=== PATIENT | male | born 1930 | race Caucasian/White ===

== ENCOUNTER → 2016-08-28 | Outpatient (CLI) | payer MEDICARE, MEDICAID ==
[~2016-08-28] MED LIST: ALTOPREV20 MG PO; AMBIEN10 MG PO; ARICEPT10 MG PO; BENADRYL25 M2 PO; CITALOPRAM20 MG PO; CLONAZEPAM0.5 MG PO; EPA FISH OIL1000 MG PO; FISH OIL1 IU PO; FLEXERIL10 MG PO; FLOMAX 0.40.4 MG/CAP; HYDROCHLOROTHIA50 MG PO; IMODIUM A-D2 M1 PO; IMODIUM A-D2 MG PO; K-BICARB99 MG PO; LOMOTIL TAB 01 UDTAB PO; LOPRESSOR100 MG PO; LUPRON DEPOT3.75 MG IM; MEDI-FIRST ASP325 MG PO; MULTIVITAMIN1 CTB PO; MYLANTA PO; NAMENDA5 MG PO; NAPROXEN500 MG PO; NORCO 325 MG-51 TA1 PO; OMEPRAZOLE20 MG PO; PAXIL20 MG PO; PEPCID 20MG TAB20 MG PO; PRILOSEC 20MG20 MG PO; RISPERDAL 0.20.25 MG PO; ROBITUSSIN DM 105 ML PO; ROCEPHIN VIA1 G/VIAL IV; ST. JOSEPH81 M2 PO; TRAZODO50 MG PO; TUMS500 MG PO; TYLENOL #21 TAB PO; TYLENOL 325MG325 MG PO; TYLENOL 650MG650 M2 PO; ULTRAM 50MG TAB50 MG PO; ULTRAM50 MG PO; VITAMIN C500 MG PO; ZOFRAN ODT4 MG PO
== END ==
LOC: LAB 16:10
DX: N39.0 Urinary tract infection, site not specified (principal); R82.71 Bacteriuria

== ENCOUNTER → 2016-11-14 | Outpatient (CLI) | payer MEDICARE, MEDICAID ==
[~2016-11-14] VITALS: Ht 182.9 cm; Wt 77.2 kg
[2016-11-14 10:14] VITALS: BP 123/65
== END ==
LOC: AMSURD 09:58
DX: I10 Essential (primary) hypertension (principal); I65.23 Occlusion and stenosis of bilateral carotid arteries; R73.02 Impaired glucose tolerance (oral); G30.1 Alzheimer's disease with late onset; M19.90 Unspecified osteoarthritis, unspecified site; C61 Malignant neoplasm of prostate

== ENCOUNTER → 2017-03-13 | Outpatient (CLI) | payer MEDICARE, MEDICAID ==
[2016-11-14 10:14] VITALS: BP 123/65
== END ==
LOC: LAB 14:32
DX: R53.83 Other fatigue (principal); L30.9 Dermatitis, unspecified; L29.3 Anogenital pruritus, unspecified

== ENCOUNTER → 2017-04-01 | Outpatient (CLI) | payer MEDICARE, MEDICAID ==
[2016-11-14 10:14] VITALS: BP 123/65
== END ==
LOC: LAB 14:37
DX: N39.0 Urinary tract infection, site not specified (principal); R82.71 Bacteriuria; R45.1 Restlessness and agitation; R45.4 Irritability and anger; R63.0 Anorexia

== ENCOUNTER → 2017-04-09 | Outpatient (CLI) | payer MEDICARE, MEDICAID ==
[2016-11-14 10:14] VITALS: BP 123/65
[2017-04-09 13:01] LABS: EOS # 0.2 (0.04-0.40); EOS % 4.6 % (0.0-4.0); HEMATOCRIT 36.4 % (42.0-52.0); HEMOGLOBIN 11.8 g/dL (13.5-18.0); MEAN CELL VOLUME 87 fl (78-100); MEAN CORPUSCULAR HEMOGLOBIN 28 pg (27-31); MEAN CORPUSCULAR HGB CONC 32 g/dL (33-37); MEAN PLATELET VOLUME 8.6 fl (7.4-10.4); MONO # 0.4 (0.20-0.80); NEU # 3.6 (1.40-6.50); PLATELET COUNT 323 K/mm3 (130-400); RED BLOOD COUNT 4.17 M/mm3 (4.20-5.60); RED CELL DISTRIBUTION WIDTH 14.8 % (11.5-14.5); WHITE BLOOD COUNT 5.2 K/mm3 (4.8-10.8)
[2017-04-09 13:08] LABS: ALBUMIN 3.6 g/dL (3.5-5.0); BUN/CREATININE RATIO 14.6 (6.0-26.0); CALCIUM 10.4 mg/dL (8.4-10.2); POTASSIUM 4.5 mmol/L (3.6-5.0); TOTAL BILIRUBIN 0.4 mg/dL (0.2-1.3); TOTAL PROTEIN 7.9 g/dL (6.3-8.2)
== END ==
LOC: RAD 11:59
PROVIDERS: Nurse Practitioner Family
DX: L02.612 Cutaneous abscess of left foot (principal); E11.9 Type 2 diabetes mellitus without complications

== ENCOUNTER → 2017-04-18 | Outpatient (CLI) | payer MEDICARE, MEDICAID ==
[2016-11-14 10:14] VITALS: BP 123/65
[2017-04-18 11:26] LABS: EOS # 0.3 (0.04-0.40); EOS % 3.6 % (0.0-4.0); HEMATOCRIT 32.8 % (42.0-52.0); HEMOGLOBIN 10.3 g/dL (13.5-18.0); LYMPH# 1.9 (1.50-4.00); MEAN CELL VOLUME 89 fl (78-100); MEAN CORPUSCULAR HEMOGLOBIN 28 pg (27-31); MEAN CORPUSCULAR HGB CONC 31 g/dL (33-37); MEAN PLATELET VOLUME 9.2 fl (7.4-10.4); MONO # 0.7 (0.20-0.80); NEU # 5.2 (1.40-6.50); PLATELET COUNT 231 K/mm3 (130-400); RED BLOOD COUNT 3.67 M/mm3 (4.20-5.60); RED CELL DISTRIBUTION WIDTH 15.3 % (11.5-14.5)
[2017-04-18 12:40] LABS: ERYTHROCYTE SEDIMENTATION RATE 108 mm/hr (0-20)
== END ==
LOC: LAB 10:54
PROVIDERS: Family Medicine
DX: L03.119 Cellulitis of unspecified part of limb (principal); R73.02 Impaired glucose tolerance (oral); I10 Essential (primary) hypertension; G30.1 Alzheimer's disease with late onset; I65.23 Occlusion and stenosis of bilateral carotid arteries